=== PATIENT | female | born 1985 | race Caucasian/White ===

== ENCOUNTER 2019-06-25 09:20 | Observation (INO) ==
--- NOTE | 2019-06-19 12:28 | PAT Medication Instructions ---
Medication Instructions Date of Service June 19, 2019 Home Medications Medication Instructions Recorded oxycodone-acetaminophen 5 mg-325 1 tab PO Q4H PRN 3 Days #18 tab 06/13/19 mg tablet ascorbic acid (vitamin C) 1,000 mg tablet 1 gm PO DAILY PRN biotin 1 mg capsule 1 mg PO DAILY calcium carbonate 500 mg calcium (1,250 mg) chewable tablet 500 mg PO DAILY PRN cholecalciferol (vitamin D3) 50 mcg (2,000 unit) capsule 2,000 units PO DAILY multivitamin 1 tab PO DAILY oxycodone-acetaminophen 5 mg-325 mg tablet 1 tab PO Q4H PRN Vitamin B-12 1 dose PO DAILY naproxen sodium [Aleve] 220 mg PO Q12H PRN ASK your surgeon for instructions naproxen sodium [Aleve] 220 mg PO Q12H PRN STOP taking 2 weeks before surgery (or as soon as possible if surgery is within 2 weeks) biotin 1 mg capsule 1 mg PO DAILY DO NOT take the morning of surgery ascorbic acid (vitamin C) 1,000 mg tablet 1 gm PO DAILY PRN calcium carbonate 500 mg calcium (1,250 mg) chewable tablet 500 mg PO DAILY PRN cholecalciferol (vitamin D3) 50 mcg (2,000 unit) capsule 2,000 units PO DAILY multivitamin 1 tab PO DAILY Vitamin B-12 1 dose PO DAILY Take morning of surgery With a small sip of water, OTHERWISE NOTHING TO EAT OR DRINK AFTER MIDNIGHT: oxycodone-acetaminophen 5 mg-325 mg tablet 1 tab PO Q4H PRN (okay to take up to 4 hours prior to surgery if needed) Take evening before surgery ascorbic acid (vitamin C) 1,000 mg tablet 1 gm PO DAILY PRN (if needed) calcium carbonate 500 mg calcium (1,250 mg) chewable tablet 500 mg PO DAILY PRN (if needed) oxycodone-acetaminophen 5 mg-325 mg tablet 1 tab PO Q4H PRN (if needed) Other Notes If you have any questions please call us at [phone] or [phone] or [phone] or [phone]
--- NOTE | 2019-06-20 11:59 | Anesthesiology Consultation ---
Date of Service June 20, 2019 Assessment & Plan (1) Encounter for pre-operative examination: Check test AM DOS Chart Review Chart Review: Acceptable Risk for Surgery and Patient seen in Pre Admission [facility]antel de paz Teaching & Discussion Pre-Anesthesia Teaching/Discussion Notes: Instructed NPO after midnight before surgery,except medications with 15 cc of water. Medication instructions provided according to the PAT guidelines. History Surgery Operation Date: 06/25/19 11:50 Proposed Procedures p Panniculectomy - Valerie Holman MD Height/Weight Height: 5 ft 10 in Weight: 116.4 kg Allergies Allergy/AdvReac Type Severity Reaction Status Date / Time amoxicillin Allergy Verified 06/15/19 12:55 Penicillins Allergy Verified 06/15/19 12:55 Sulfa (Sulfonamide Allergy Verified 06/15/19 12:55 Antibiotics) Medications Home Medications Medication Instructions Recorded Confirmed Last Taken ascorbic acid (vitamin C) 1,000 mg 1 gm PO DAILY PRN 04/02/19 06/15/19 Unknown tablet biotin 1 mg capsule 1 mg PO DAILY 04/02/19 06/15/19 Unknown calcium carbonate 500 mg calcium 500 mg PO DAILY PRN tab 04/02/19 06/15/19 Unknown (1,250 mg) chewable tablet cholecalciferol (vitamin D3) 50 2,000 units PO DAILY 04/02/19 06/15/19 Unknown mcg (2,000 unit) capsule multivitamin 1 tab PO DAILY 04/02/19 06/15/19 Unknown oxycodone-acetaminophen 5 mg-325 1 tab PO Q4H PRN 3 Days #18 tab 06/13/19 06/15/19 Unknown mg tablet Vitamin B-12 1 dose PO DAILY 06/15/19 06/15/19 Unknown naproxen sodium [Aleve] 220 mg PO Q12H PRN 06/15/19 06/15/19 Unknown Past Medical History Medical History Bulging of intervertebral disc Depression with anxiety Heartburn rare/no meds History of migraine Obesity Osteoarthritis Pannus, abdominal (Inactive) PCOS (polycystic ovarian syndrome) Exercise / Class Metabolic Activity II 4-5 Yardwork/Stairs/Walk up hill Past Family History Family History Mother Hypertension Father No problems noted. Grandfather (Maternal) Diabetes Uncle Family history of reaction to anesthesia "anesthesia wears off quickly" Past Surgical History Surgical History History of section History of esophagogastroduodenoscopy (EGD) History of sinus surgery History of tonsillectomy and adenoidectomy History of wisdom tooth extraction Past Anesthesia History Other - *Patient reports anesthesia "wore off quickly" (no awareness) during past dental procedures, . No similar issues with sinus surgery.* - Uncle: "travis off" quickly with local anesthesia History of PONV History of PONV (+ nausea) Social History Smoking Status: Current some day smoker tobacco type: cigars Smoking cigarettes per day: Occasional cigar (once every few months) Do You Dip or Chew Tobacco: No Hx Alcohol Use: Yes alcohol intake frequency: holidays/special occasions only Hx Substance Use: No substance use type: does not use Review of Systems Rare reflux. Patient denies chest pain, shortness of breath, dyspnea on exertion, cough, wheezing, palpitations. Physical Exam Vital Signs VITALS BP 124/77 P 72 TEMP 99.1 SP02 97%RA RESP 18 PHYSICAL Full neck and c-spine range of motion. Full TMJ range of motion. TMD 4 finger breaths Mallampati Score 1 Dentition: lower/upper front chipped tooth, upper front cap Lungs: clear throughout to auscultation Cardiac: regular rate and rhythm, no murmurs noted Spine: normal Carotid arteries: negative bruit Extremities: no edema Testing Laboratory Results 06/20/19 WBC 7.29 H/H 13.0/38.6 PLATELETS 311 SODIUM 139 POTASSIUM 4.0 CHLORIDE 108 CO2 29 BUN 13 CREATININE 0.75 GLUCOSE 78 PT 10.2 PTT 27.6 INR 1.0
[~2019-06-25 09:20] MED LIST: CLINDAMYCIN 600 MG/54 ML BAG IV SCH; LIDOCAINE HCL 2% 2 ML VIAL/AMP(20MG/ML) INFIL ONE; LR 15ML/HR IV SCH; MIDAZOLAM HCL 1 MG/ML 2ML VIAL ONE; PROPOFOL IV EMULSION 10 MG/ML 20 ML VIAL IV ONE; ROCURONIUM BROMIDE 10 MG/ML 5 ML VIAL ONE; fentaNYL citrate 100 MCG/2 ML VIAL ONE
--- NOTE | 2019-06-25 10:39 | History & Physical Bridge Note ---
Date of Service June 25, 2019 History & Physical Bridge Note I have examined the patient, reviewed the History & Physical and in the interval since the performance of the History & Physical I have noted the following changes of clinical significance: no changes noted
[2019-06-25] MEDS ORDERED: LIDOCAINE/EPINEPHRINE 1% 20 ML VIAL ONE (11:21)
[2019-06-25] MEDS ORDERED: BUPIVACAINE 0.25% 30 ML VIAL ONE (11:21)
[2019-06-25] MEDS ORDERED: HYDROmorphone INJ 2 MG/ML SYR/VIAL ONE (11:38)
[2019-06-25] MEDS ORDERED: ACETAMINOPHEN 1000 MG/100 ML IV IV ONE (11:39)
[2019-06-25] MEDS ORDERED: ONDANSETRON INJ 2 MG/ML 2 ML VIAL ONE (12:12)
[2019-06-25] MEDS ORDERED: DEXAMETHASONE SOD INJ 4 MG/ML VIAL ONE (12:12)
[2019-06-25] MEDS ORDERED: GLYCOPYRROLATE 0.2 MG/ML VIAL ONE (12:13)
[2019-06-25] MEDS ORDERED: NEOSTIGMINE METHYLSULFATE 5 MG/5 ML SYR ONE (12:13)
[2019-06-25] MEDS ORDERED: fentaNYL citrate 100 MCG/2 ML VIAL ONE (13:56)
--- NOTE | 2019-06-25 14:52 | Post Operative Brief Note ---
Immediate Post Op Note v1 Date of Surgery June 25, 2019 Pre & Post Diagnosis Operation Date: 06/25/19 11:50 Pre-Op Diagnosis: Abdominal Pannus Post-Op Diagnosis: Abdominal Pannus I identified the patient and participated in the time-out.: Yes Procedure Operation Date: 06/25/19 11:50 Actual Procedures p Panniculectomy - Valerie Holman MD Surgeon Valerie Holman MD Manufacturing Manager Tenisha Ching PA-C Estimated Blood Loss 75 Findings Consistent with Post-Op Diagnosis Drains Willy-Childers Drain
--- NOTE | 2019-06-25 14:55 | Operative Report ---
PG Post Operative Report Pre & Post Diagnosis Operation Date: 06/25/19 11:50 Pre-Op Diagnosis: Abdominal Pannus Post-Op Diagnosis: Abdominal Pannus I identified the patient and participated in the time-out.: Yes Procedure Operation Date: 06/25/19 11:50 Actual Procedures p Panniculectomy - Valerie Holman MD Surgeon Valerie Holman MD Logistics Team Leader Tenisha Ching PA-C Estimated Blood Loss 75 Findings Consistent with Post-Op Diagnosis Specimens abdominal pannus Drains JPx2 Anesthesia Type General Complications none Disposition Disposition: Recovery Room Indications s/p weight loss, overhanging abdominal pannus Description of Procedure Risks, benefits, and alternatives of the procedure were explained to the patient who agreed and signed consent. She was identified and marked in the preoperative holding area. She was brought to the operating room where she was positioned supine and placed under general anesthesia without incident. Alexander catheter was placed. Surgical site was prepped and draped sterilely. A time-out procedure was performed. I reassessed my markings which included a lower horizontal abdominal incision with the midportion 8 cm above the vulvar commissure. Incision was marked bilaterally to the ASIS. I began by injecting 1% lidocaine with epinephrine along the planned incision. The lower abdominal incision was made using a 15-blade scalpel to incise epidermis and superficial dermis followed by electrocautery to incise deep dermis, subcutaneous fat, Ashish's fascia down to the abdominal wall. Care was taken to bevel superiorly in order to avoid encountering the inguinal region. Electrocautery was used to elevate the anterior abdominal skin flap ligating the perforating vessels with 3-0 Vicryl ties and electrocautery. Dissection was carried up to the level of the umbilicus in the midline. At this point, a 15-blade scalpel was used to circumscribe the umbilicus. A vertical midline incision was then made from the incision to the umbilicus and divided in the midline using electrocautery. The umbilicus was then dissected out using electrocautery down to abdominal wall. The umbilical stalk appeared viable throughout the procedure. In order to facilitate inset of the umbilicus, dissection was continued for about an additional 6 cm superior to the umbilicus. At this point, the bed was flexed and the mid portion of the superior skin flap was inset above the mons pubis using 2-0 Vicryl suture. Skin flaps were marked for excision. A 15-blade scalpel was used to make these incisions and the incision was deepened through dermis, subcutaneous fat, Ashish's fat using electrocautery. A 15 Greenlandic Kevon drains were placed in the wound bed and brought out through a separate stab incision in the mons pubis. The drains were sutured into place using 3-0 nylon. The umbilicus was brought out through an inverted triangular incision in the abdominal wall. This was performed using a 15-blade scalpel. Wound closure was then begun lateral to medial using 2-0 Vicryl Ashish's fascia sutures, 2-0 Vicryl deep dermal sutures, 2-0 PDO running superficial Quill suture, 3-0 Monocryl running subcuticular suture. During closure, large standing cutaneous deformities were noted bilaterally and marked for excision. Umbilicus was brought out through the inverted triangle incision and was sutured into place using 4-0 chromic half buried horizontal mattress sutures. The umbilicus was dressed using Xeroform and the incision was dressed using Dermabond Prineo followed by dry dressings and an abdominal binder. Prior to closure, a total of 10 mL of 0.25% Marcaine plain were injected into the fascia as well as along the incisions. The procedure was tolerated well. The patient was awakened and transferred to recovery in satisfactory condition. Tenisha Ching PA-C was present and scrubbed throughout the entire procedure and was instrumental in providing retraction of the pannus and assisting in simultaneous wound closure. I attest to the content of the Intraoperative Record and any orders documented therein. Any exceptions are noted below.
[2019-06-25] MEDS ORDERED: NALOXONE HCL 0.4 MG/1 ML VIAL/CARP IV PRN (15:11)
[2019-06-25] MEDS ORDERED: HYDROmorphone INJ 1 MG/ML SYRINGE IV PRN (15:11)
[2019-06-25] MEDS ORDERED: LABETALOL HCL IV 5 MG/ML 20ML IV PRN (15:11)
[2019-06-25] MEDS ORDERED: ONDANSETRON INJ 2 MG/ML 2 ML VIAL IV PRN ×2 (15:11→16:18)
[2019-06-25] MEDS ORDERED: PROMETHAZINE HCL 12.5 MG in SODIUM CHLORIDE 0.9% 50 ML IV PRN ×2 (15:11→16:18)
[2019-06-25] MEDS ORDERED: ePHEDrine sulfate 50 MG/ML AMP IV PRN (15:11)
[2019-06-25] MEDS ORDERED: FLUMAZENIL 0.1 MG/1 ML 10 ML VIAL IV PRN (15:11)
[2019-06-25] MEDS ORDERED: ATROPINE SULFATE 0.1 MG/ML 10ML SYR IV PRN (15:11)
[2019-06-25] MEDS: fentaNYL citrate 100 MCG/2 ML VIAL IV PRN ×2 (15:22→15:27)
--- NOTE | 2019-06-25 15:51 | Anesthesiology Progress Note ---
Date of Service June 25, 2019 Anesthesia Post Procedure Vital Signs Vital Signs: Temp Pulse Pulse Resp BP BP Pulse Ox 06/25/19 15:40 64 18 129/82 94 06/25/19 15:30 61 18 127/64 100 06/25/19 15:20 62 18 128/67 100 06/25/19 15:10 36.0 C L 68 21 105/67 100 06/25/19 09:59 36.2 C L 68 20 116/77 98 Transfer of Care Handoff Completed per policy Notes Mental Status: alert / awake / arousable Patient Amnestic to Procedure: Yes Nausea / Vomiting: adequately controlled Pain: adequately controlled Airway Patency, RR, SpO2: stable & adequate BP & HR: stable & adequate Hydration State: stable & adequate Anesthetic Complications: no major complications apparent
[2019-06-25] MEDS ORDERED: MoRPHine SULFATE 4 MG/ML 1 ML CARP\\VIAL IV PRN (16:18)
[2019-06-25] MEDS ORDERED: DiphenhydrAMINE HCL 50 MG/ML VIAL IV PRN (16:18)
[2019-06-25] MEDS ORDERED: LORazepam 0.5 MG TAB PO PRN (16:18)
[2019-06-25] MEDS ORDERED: ACETAMINOPHEN 325 MG TAB PO PRN (16:18)
[2019-06-25] MEDS ORDERED: OXYCODONE/ACETAMINOPHEN 5mg/325mg TAB PO PRN (16:18)
[2019-06-25] MEDS ORDERED: MoRPHine SULFATE 10 MG/ML CARP/VIAL IV PRN (16:18)
[2019-06-25] MEDS ORDERED: MoRPHine SULFATE 2 MG/ML CARP ONE (16:30)
[2019-06-25] MEDS: MoRPHine SULFATE 2 MG/ML CARP IV PRN ×2 (16:33→18:15)
[2019-06-25] MEDS: D5W AND 1/2NSS 1,000 ML IV SCH (16:54)
[2019-06-25] MEDS: CLINDAMYCIN 600 MG in DEXTROSE 5% 50 ML IV SCH (20:21)
[2019-06-26] MEDS ORDERED: PERCOCET 5/325MG HOMEPACK PO SCH
[2019-06-26] MEDS: CLINDAMYCIN 600 MG in DEXTROSE 5% 50 ML IV SCH ×2 (03:38→12:59)
[2019-06-26] MEDS: D5W AND 1/2NSS 1,000 ML IV SCH (06:18)
[2019-06-26] MEDS ORDERED: ENOXAPARIN INJ 40 MG/0.4 ML SYR SQ SCH (07:00)
--- NOTE | 2019-06-26 08:13 | Anesthesiology Progress Note ---
Date of Service June 26, 2019 Anesthesia Post Procedure Vital Signs Vital Signs: Temp Pulse Pulse Resp BP BP Pulse Ox 06/26/19 04:01 37.2 C 67 18 99/65 L 94 06/26/19 00:16 78 109/66 06/25/19 23:00 37.5 C 98 H 16 90/56 L 95 06/25/19 19:03 37.1 C 67 16 112/71 95 06/25/19 18:03 36.9 C 72 18 113/71 95 06/25/19 16:55 36.6 C 65 16 114/72 98 06/25/19 16:30 36.6 C 62 16 113/72 98 06/25/19 16:00 36.6 C 62 16 119/78 98 06/25/19 15:50 36.4 C L 63 18 133/76 98 06/25/19 15:40 64 18 129/82 94 06/25/19 15:30 61 18 127/64 100 06/25/19 15:20 62 18 128/67 100 06/25/19 15:10 36.0 C L 68 21 105/67 100 06/25/19 09:59 36.2 C L 68 20 116/77 98 Pain Intensity Bilateral Abdomen: Pain Intensity: 4 Notes Mental Status: alert / awake / arousable Patient Amnestic to Procedure: Yes Nausea / Vomiting: adequately controlled Pain: adequately controlled Airway Patency, RR, SpO2: stable & adequate BP & HR: stable & adequate Hydration State: stable & adequate Anesthetic Complications: no major complications apparent and Pt Satisfied with anesthetic care
[2019-06-26] MEDS: OXYCODONE/ACETAMINOPHEN 5mg/325mg TAB PO PRN ×3 (08:37→16:44)
[2019-06-26] MEDS ORDERED: PERCOCET 5/325MG HOMEPACK PO ONE (08:59)
[2019-06-26] MEDS ORDERED: MULTIVITAMIN TAB PO SCH (09:00)
--- NOTE | 2019-06-26 09:08 | Surgery Progress Note ---
Date of Service June 26, 2019 Assessment & Plan (1) S/P panniculectomy: POD #1 s/p Panniculectomy Patient doing as expected with appropriate post-op discomfort. Patient reassured that everything looks as expected. She is tolerating regular diet without issue. She was encouraged to get out of bed and sit in chair at bedside. Patient transitioned to PO pain medication. We discussed that drains will remain at discharge. I reviewed proper drain management. Patient ok for discharge today. She will be staying at local [facility] with grandmother due to poor road conditions. Patient will be provided with Percocet homepack because she left pain prescription at home in [place]. All questions answered. Discharge instructions reviewed with patient. We will see patient in office tomorrow. Tavares Robin is resting in bed as I entered the room. Her grandmother is at bedside. She is experiencing post-operative pain as expected. She tolerated a regular diet yesterday for dinner and reports that she is hungry this AM. She denies nausea. Alexander catheter removed this AM. Patient has yet to void on own. Patient will be staying local this evening at [facility] because she is afraid to have her grandmother drive her back to [place] if roads are icy. Physical Exam Physical Exam: On physical exam- abdominal binder in place- surgical dressings are dry, intact. Drains x [address] with serosang drainage. Catheter removed this AM. Results & Data Vital Signs (Past 12 Hours) Vital Signs Temp Pulse Resp BP BP Pulse Ox 06/26/19 08:21 37.2 C 64 18 123/73 94 06/26/19 04:01 37.2 C 67 18 99/65 L 94 06/26/19 00:16 78 109/66 06/25/19 23:00 37.5 C 98 H 16 90/56 L 95 PG Care Time/CCT Total # of Minutes Spent Total Time Spent with Patient: Total time spent is greater than 50% in coordination of care (as documented) at patient's floor/unit and/or counseling patient:
--- NOTE | 2019-06-27 13:43 | Discharge Summary ---
Date of Service June 27, 2019 Admission HPI Per Admitting Provider Please see admission H & P. Admission Exam Per Admitting Provider Please see admission H & P. Principal Diagnosis Abdominal pannus. Discharge Exam On physical exam- abdominal binder in place- surgical dressings are dry, intact. Drains x [address] with serosang drainage. Discharge Data Allergies Allergy/AdvReac Type Severity Reaction Status Date / Time amoxicillin Allergy Swelling Verified 06/25/19 09:54 of Lip/Tongue/Throat Penicillins Allergy Swelling Verified 06/25/19 09:54 of Lip/Tongue/Throat Sulfa (Sulfonamide Allergy Hives Verified 06/25/19 09:54 Antibiotics) Procedures Performed Operation Date: 06/25/19 11:50 Actual Procedures p Panniculectomy - Valerie Holman MD Hospital Course (1) S/P panniculectomy: Sharda is a 33-year-old female with abdominal pannus. She was taken to the OR and underwent Panniculectomy. There were no intraoperative complications. She was taken to recovery and transferred to med/surg for observation. On POD #1, patient was experiencing post-operative discomfort, but was overall doing well. Alexander cather was removed morning of POD #1. She was tolerating a regular diet, voiding on own, and ambulating without issue. On exam, her vitals were stable, abdominal binder in place, VLADIMIR drains x [address] with serosang drainage. Patient planning to stay at local hotel so her grandmother does not have to drive in poor road conditions. She was discharged home with written discharge instructions. Patient aware that she is to record drainage amounts with dates/times. Patient to follow-up in office in 1 day. All questions answered. Total Time Total Time Spent Total Time Spent (In Minutes): 5 Discharge Plan Discharge Items Patient Disposition: Home - Self-Care Reason For Visit: Abdominal Pannus Discharge Diagnosis: Abdominal Pannus Activity: As commented below Non-emergency contact: Surgeon Call non-emergency contact if: you have any medication questions, your pain is not controlled, your temperature is above 101.5, your wound has increased redness and your wound has increased drainage Follow-up/Referrals: Saima Ty, C.R.N.P [Primary Care Provider] - Diet: Regular Addtl Attending Provider Instructions: ACTIVITY RECOMMENDATIONS: __Normal activities X__No bending, lifting or straining __No driving X__Driving allowed when you are off pain medications _X_Walking permitted __You should have help at home for ___ days DRESSINGS: __No dressings required _X_Keep dressings dry/in place until first office visit __Remove dressings ___ and leave dressings off __Apply ice ___ days __Remove dressings and reapply garment __Apply antibiotic ointment (Bacitracin, Neosporin, etc) to wounds 3-4 times/day for 10 days BATHING: X__Keep dressings dry _X_Sponge bathing permitted- Keep water away from surgical dressings. __Showering permitted X__No swimming, hot tubs or soaking in a tub MEDICATIONS: Resume previous medications unless instructed otherwise by your surgeon. _X_Do not use aspirin, Motrin, Advil or Ibuprofen as these may promote bleeding. Please use Tylenol. _X_Prescription(s) provided: Prescription for pain medication provided at last office visit. Please use as prescribed. OTHER INSTRUCTIONS: _X_Record drain output 2-3 times per day SPECIAL CARE INSTRUCTIONS: * It is normal to have a mild fever after surgery. If your temperature is higher than 101.5 degrees F, please call the office at [phone]. * Constipation is a typical side effect of pain medication. An [id number] stool softener will help relieve this. * Leaking around surgical drains may occur and should not cause concern. Sometimes these drains become clogged. If this happens, remove the bulb and milk the clot out of the tube, then replace the bulb. * Drainage from wounds after liposuction is normal and should be expected. Garments will become soiled. You should protect furniture and bedding. This drainage should mostly subside within 2-3 days. Leave garments in place unless instructed to remove them. * If you have unusual drainage from a wound or are concerned you have an infection or have any questions or concerns, please call the office at [phone]. FOLLOW UP VISIT: If not already scheduled, please call the office, , when you return home after surgery to schedule an appointment to be seen in _1__ day. Pending Studies at Discharge: No Stand-Alone Forms: My [facility], Opioid Pain Management, Smoking Cessation Medications and DC Order Prescriptions: Continued multivitamin tablet 1 tab PO DAILY RF: 0 cholecalciferol (vitamin D3) 2,000 unit capsule 2,000 units PO DAILY RF: 0 biotin 1 mg capsule 1 mg PO DAILY RF: 0 calcium carbonate [Calcium 500] 500 mg calcium (1,250 mg) tablet,chewable 500 mg PO DAILY PRN (Reason: .) RF: 0 ascorbic acid (vitamin C) 1,000 mg tablet 1 gm PO DAILY PRN (Reason: .) RF: 0 oxycodone-acetaminophen [Endocet] 5-325 mg tablet 1 tab PO Q4H PRN (Reason: pain) 3 Days Qty: 18 RF: 0 cyanocobalamin (vitamin B-12) [Vitamin B-12] 1,000 mcg Tablet 1 dose PO DAILY RF: 0 Discontinued naproxen sodium [Aleve] 220 mg Tablet 220 mg PO Q12H PRN (Reason: Pain) RF: 0 Discharge Orders: Discharge Order (Routine); Ordered 06/26/19 Ordered By: Janette Monroy/Other Patient Handouts: Tube Willy Childers Drainage Care Admission Data Admit Date/Time: 06/25/19 15:13 Attending Provider: Valerie Holman Admit Provider: Valerie Holman Primary Care Provider: Saima Ty Other Interventions: Discharge Summary Assessment (RN) Last Done: 06/26/19 10:31 DC Date/Time DO NOT enter until pt leaves facility: 06/26/19 19:32
== END 2019-06-26 19:32 | disposition home or self-care (01) ==
LOC: 3W 09:20 → ASU 09:20